=== PATIENT | male | born 1970 | race Caucasian/White ===

== ENCOUNTER 2016-07-21 17:46 | Emergency (ER) | payer OTHER ==
[~2016-07-21] VITALS: Ht 185.4 cm; Wt 101.7 kg
[2016-07-21 17:47] VITALS: BP 146/91
[2016-07-23] MEDS ORDERED: OMEP20TA62 PO (19:17)
[2016-07-23] MEDS ORDERED: ESZO3TAB9 PO (19:18)
[2016-07-25] MEDS ORDERED: DOXY100T PO (14:26)
[2016-07-25] MEDS ORDERED: AMOX1TAB64 PO (14:26)
[2016-07-25] MEDS ORDERED: ACET325T14 PO (14:26)
== END 2016-07-21 18:47 | disposition home or self-care (01) ==
LOC: ED 18:37
DX: L02.512 Cutaneous abscess of left hand (principal); Z88.8 Allergy status to other drugs, medicaments and biological substances; Z87.891 Personal history of nicotine dependence
CPT/HCPCS: 10160

== ENCOUNTER 2018-04-08 20:08 | Emergency (ER) | payer OTHER ==
[~2018-04-08] VITALS: Ht 182.9 cm; Wt 92.2 kg
[~2018-04-08 20:08] MED LIST: ACET325T14 PO; AMOX1TAB64 PO; DOXY100T PO; ESZO3TAB28 PO; OMEP20TA62 PO
[2018-04-08 20:15] VITALS: BP 155/87
[2018-04-08] MEDS ORDERED: LIDOCAINE 1%-EPI 1:100K, 20ML SQ ONE (20:30)
[2018-04-08] MEDS ORDERED: CLINDAMYCIN 300 MG CAPSULE PO ONE (21:00)
[2018-04-08] MEDS ORDERED: LIDOCAINE-MPF 1%, 5ML ONE (21:54)
[2018-04-08] MEDS ORDERED: CLINDAMYCIN 300 MG CAPSULE ONE (21:54)
--- NOTE | 2018-04-08 21:54 | NUR ---
LIDOCAINE GIVEN TO PROVIDER FOR INJECTION
[2018-04-08] MEDS ORDERED: LIDOCAINE 1%, 10ML INFIL ONE (22:30)
[2018-04-08] MEDS ORDERED: IBUP-1223 PO (22:42)
[2018-04-08] MEDS ORDERED: PANTOPRAZOLE (22:42)
== END 2018-04-08 22:53 | disposition home or self-care (01) ==
LOC: ED 22:47
DX: M27.2 Inflammatory conditions of jaws (principal); I10 Essential (primary) hypertension; Z87.891 Personal history of nicotine dependence
CPT/HCPCS: 10060; 76536; 99284

== ENCOUNTER 2019-08-22 16:42 | Emergency (ER) | payer OTHER ==
[~2019-08-22] VITALS: Ht 185.4 cm; Wt 92.0 kg
[~2019-08-22 16:42] MED LIST changes: +IBUP-1223 PO; +PANTOPRAZOLE
[2019-08-22 16:44] VITALS: BP 28/79
== END 2019-08-22 18:51 | disposition home or self-care (01) ==
LOC: ED 16:59
DX: S20.211A Contusion of right front wall of thorax, initial encounter (principal); K21.9 Gastro-esophageal reflux disease without esophagitis; X58.XXXA Exposure to other specified factors, initial encounter; Y93.89 Activity, other specified; Y92.89 Other specified places as the place of occurrence of the external cause; Y99.8 Other external cause status
CPT/HCPCS: 99283